=== PATIENT | male | born 1950 | race Caucasian/White ===

== ENCOUNTER → 2017-06-22 | Outpatient (CLI) | payer MEDICARE ==
[~2017-06-22] MED LIST: CONTRAST GIVEN MC
[2017-06-22] MEDS: IOHEXOL 300 MG/ML 50 ML VIAL. INT ART (14:08)
[2017-06-22] MEDS: BUPIVACAINE MPF 0.5% 10 ML VIAL for KCIC. IJ (14:08)
[2017-06-22] MEDS: LIDOCAINE 1% Multi-Dose 20 ML VIAL. ID (14:08)
[2017-06-22] MEDS: methylPREDNISolone ACETATE 40 MG/ML VIAL. INT ART (14:08)
== END | disposition home or self-care (01) ==
LOC: KCIC 12:06
DX: M25.551 Pain in right hip (principal)
CPT/HCPCS: 20610; 77002; J1030; Q9967